=== PATIENT | female | born 1985 | race Caucasian/White ===

== ENCOUNTER 2022-01-23 15:36 | Emergency (ER) | payer MEDICARE, BC, OTHER ==
[2022-01-23 16:48] VITALS: RESP 18
[2022-01-23] MEDS ORDERED: lamoTRIgine 100 MG TAB PO STA (17:13)
[2022-01-23] MEDS ORDERED: DESVENLAFAXINE SUCCINATE 50 MG TAB.ER.24H PO STA (17:13)
[2022-01-23] MEDS ORDERED: ARIPiprazole 10 MG TAB PO STA (17:13)
[2022-01-23] MEDS ORDERED: clonazePAM 0.5 MG TAB PO STA (17:14)
--- NOTE | 2022-01-23 17:21 | ED ---
Psych HPI - General Chief Complaint: Psychiatric Symptoms Stated Complaint: mental health Time Seen by Provider: 01/23/22 17:05 Source: patient Mode of arrival: ambulatory - History of Present Illness Initial Comments: 36-year-old female with past history of anxiety and depression presents emergency department for medication refill. States that she takes 5 different medications for her mental health however has been out of these medications for the past 4 days. She is under the care of a psychiatrist. States that there was a lapse in her appointments and therefore she has been out of her medications. Presents today for a two-week request of medications. Does have an appointment on the . States she has been on these medications for several years. No current suicidal ideations or homicidal ideations. - Related Data Previous Rx's Medication Instructions Recorded ARIPiprazole [Abilify] 10 mg PO DAILY #15 tab 01/23/22 Desvenlafaxine [Pristiq ER] 100 mg PO DAILY #15 tab 01/23/22 cloNIDine HCL 0.2 mg PO HS #15 tablet 01/23/22 clonazePAM [KlonoPIN] 1 mg PO DAILY #15 tab 01/23/22 lamoTRIgine [LaMICtal] 200 mg PO DAILY #15 tablet 01/23/22 Allergies Allergy/AdvReac Type Severity Reaction Status Date / Time No Known Allergies Allergy Verified 01/23/22 16:48 Review of Systems ROS Statement: Those systems with pertinent positive or pertinent negative responses have been documented in the HPI. ROS Other: All systems not noted in ROS Statement are negative. Past Medical History Past Medical History: No Reported History History of Any Multi-Drug Resistant Organisms: None Reported Past Surgical History: No Surgical Hx Reported Past Psychological History: Anxiety, Depression Smoking Status: Never smoker Past Alcohol Use History: None Reported Past Drug Use History: None Reported General Exam Limitations: no limitations Course Vital Signs 01/23/22 01/23/22 16:45 18:05 Temperature 98.2 F 98.0 F Pulse Rate 117 H 98 Respiratory 18 18 Rate Blood Pressure 139/93 135/88 O2 Sat by Pulse 97 98 Oximetry Medical Decision Making - Medical Decision Making Upon arrival patient placed into room 9. History and physical exam was performed. Medications are administered to the patient any did give her a 2 week refill. Patient is to take medications as directed and follow-up with her psychiatrist for further medication refills. Return for any new or worsening symptoms. Patient was discharged home in stable condition Disposition Clinical Impression: Anxiety Disposition: HOME SELF-CARE Condition: Stable Instructions (If sedation given, give patient instructions): Medicine Refill (ED) Additional Instructions: Please follow up with your doctor at your scheduled appointment on the . Return to the emergency room for any new or worsening symptoms Prescriptions: ARIPiprazole [Abilify] 10 mg PO DAILY #15 tab cloNIDine HCL 0.2 mg PO HS #15 tablet clonazePAM [KlonoPIN] 1 mg PO DAILY #15 tab lamoTRIgine [LaMICtal] 200 mg PO DAILY #15 tablet Desvenlafaxine [Pristiq ER] 100 mg PO DAILY #15 tab Is patient prescribed a controlled substance at d/c from ED?: Yes When asked, does pt state using other controlled substances?: No Referrals: Nonstaff,Physician [Primary Care Provider] - 1-2 days Time of Disposition: 17:21
[2022-01-23 18:11] VITALS: BP 135/88; PULSE 98; TEMP 98
== END 2022-01-23 18:05 | disposition home or self-care (01) ==
LOC: EC 15:36
DX: F41.9 Anxiety disorder, unspecified (principal); F32.A Depression, unspecified; Z79.899 Other long term (current) drug therapy
CPT/HCPCS: 99282